=== PATIENT | male | born 1955 | race Caucasian/White ===

== ENCOUNTER 2017-01-05 23:59 | Inpatient (IN) | payer MEDICARE ==
--- NOTE | ~2017-01-05 | OP ---
Record Of [address] [place]. [address] NAME: KHUSHBOO SCHULTZ : 53 STATUS : ADM IN PAT#: [id number] AGE: 61 ADM/REG DATE : 01/05/17 MR#: [id number] REPORT SERV DATE: 01/10/17 DICTATED BY: ROBERT BRAR DATE: 01/10/17 REPORT STATUS : Draft TRANSCRIBED BY: MODL DATE: 01/10/17 DATE OF PROCEDURE: 01/10/2017 CATALYTIC CONVERTER OPERATOR HELPER: Donald Vicente. ANESTHESIOLOGIST: Ray Carter M.D. PREOPERATIVE DIAGNOSES: 1. Non-ST elevation myocardial infarction. 2. Three-vessel coronary artery disease. 3. Peripheral vascular disease. 4. Prior stroke. 5. Hyperlipidemia. 6. Hypertension. 7. Shortness of breath. POSTOPERATIVE DIAGNOSES: 1. Non-ST elevation myocardial infarction. 2. Three-vessel coronary artery disease. 3. Peripheral vascular disease. 4. Prior stroke. 5. Hyperlipidemia. 6. Hypertension. 7. Shortness of breath. OPERATION/PROCEDURE PERFORMED: 1. Median sternotomy. 2. Extracorporeal circulation. 3. Urgent coronary artery bypass grafting x2, reverse greater saphenous vein graft to left anterior descending artery, reverse greater saphenous vein graft to obtuse marginal #1. 4. Transesophageal echo. 5. Endoscopic vein harvest, right leg. COMPLICATIONS: None. TUBES: A 24-Russian Silviano to left pleural space. A 32-Russian straight mediastinal chest tube. Atrial and ventricular pacing wires were placed. POSTOPERATIVE CONDITION: Stable to CVICU. The patient was weaned from cardiopulmonary bypass on 2.5 mcg per kg per minute of dobutamine. Total cross-clamp 39 minutes. Total pump time 54 minutes. Transesophageal echo revealed an EF of approximately 40% to 45% with trace MR, trace AI, no . Postprocedure, there was preserved ejection fraction post revascularization. ANATOMIC FINDINGS: The distal OM system was submillimeter, was deemed too small to bypass. The patient's PDA and PLB which could be seen from collaterals on the cath were Record Of [address] [place]. [address] NAME: KHUSHBOO SCHULTZ : 53 STATUS : ADM IN PAT#: [id number] AGE: 61 ADM/REG DATE : 01/05/17 MR#: [id number] REPORT SERV DATE: 01/10/17 DICTATED BY: ROBERT BRAR DATE: 01/10/17 REPORT STATUS : Draft TRANSCRIBED BY: BELEN DATE: 01/10/17 submillimeter, were felt to be too small to bypass. The vein was 5 to 6 mm and excellent in quality. They were excellent targets. The details of the left internal mammary artery, left internal mammary artery was not usable. It was taken down with no issues. After heparinization, it was clipped and divided. The clip on the vessel was removed and the flow was checked. There was a very poor flow to really no flow after removing the clip. A #2 Marybeth was threaded up the vessel and was used to dilate the vessel. After removing the Marybeth, there was atherosclerotic plaque and material that came out. There was better flow from the artery, but I did not feel that this was an appropriate artery to be used, so the RAY was transected high in the chest and vein was used instead. INDICATIONS FOR PROCEDURE: Mr. Schultz is a 61-year-old gentleman with severe peripheral vascular disease. He was admitted to an outside hospital with shortness of breath and elevated troponin. He was found to have an NSTEMI. He was ultimately transferred for cardiac catheterization. Cardiac catheterization revealed severe three-vessel coronary artery disease and the patient was referred for CABG. Risks, benefits, and alternatives were discussed. The STS morbidity mortality scores were discussed and STS of 1.4 and morbidity mortality of 15% were discussed. The risks were discussed including but not limited to, bleeding, infection, stroke, , heart attack, kidney failure, lung failure, arrhythmias. All questions were answered. The patient was brought to the operating room after suitable period for his washout from Plavix. DESCRIPTION OF PROCEDURE: The patient was brought to the operating room and placed supine on the operating room table. After satisfactory induction of general endotracheal anesthesia, he was prepped and draped in the usual sterile fashion. Working simultaneously, an endoscopic vein harvest was performed from the right leg while median sternotomy was performed. Skin and subcutaneous tissues were divided. Clavipectoral fascia was divided. The sternum was divided in the midline. Sternal retractor was placed. Thymic tissue was divided in the midline. Pericardium was opened in the midline along the diaphragmatic surface. The Rultract retractor was then placed after removing the sternal retractor. The internal mammary artery was taken down as a pedicle from its takeoff under the subclavian vein to the bifurcation of the diaphragm. It was infiltrated with papaverine. Systemic heparinization was achieved. After three minutes, the pedicle was clipped and divided at the bifurcation of the diaphragm. Hemostasis was obtained along the chest wall. A 24- Russian Silviano was placed in the left chest and exteriorized. The Rultract retractor was removed and the pedicle graft was inspected. The clip was removed and there was little-to- no flow in the vessel. A #2 Marybeth was placed and was passed easily in a retrograde fashion. However, upon inflating the Marybeth and pulling it through the vessel, atherosclerotic debris was removed. It was felt that the internal mammary artery was not usable. It was ligated and transected high in the chest and passed off the field. The sternal retractor was placed. The pericardial wall was created. Ascending aortic cannulation was achieved at the base of the innominate artery through dual pursestrings with a soft flow cannula. Antegrade root vent cardioplegia tack was placed and a dual stage venous cannulation was placed through pursestring in the right atrial appendage. The conduit was brought up and prepared for bypass. Cardiopulmonary bypass was initiated after documentation of an adequate ACT. The targets were then inspected. The targets were as described in the findings. The cross-clamp was brought up, heart was arrested with cold antegrade cardioplegia with cold antegrade cardioplegia being given every 15 to 20 minutes Record Of Operation [address] [address] NAME: KHUSHBOO SCHULTZ : 53 STATUS : ADM IN PAT#: [id number] AGE: 61 ADM/REG DATE : 01/05/17 MR#: [id number] REPORT SERV DATE: 01/10/17 DICTATED BY: ROBERT BRAR DATE: 01/10/17 REPORT STATUS : Draft TRANSCRIBED BY: MODL DATE: 01/10/17 throughout the remainder of the cross clamp. The vein was reversed, spatulated, and after completion of the initial aliquot of cardioplegia, the two distal anastomoses were performed. The heart was positioned. The obtuse marginal #1 was opened along its anterior surface. A running continuous anastomosis was performed between this and the reverse greater saphenous vein using 8-0 Surgipro. This was checked for hemostasis and felt to be hemostatic. The heart was filled. The vein was cut to length and spatulated. Attention was then turned to the left anterior descending artery, it was opened along its anterior surface. The vein was spatulated and a running continuous anastomosis was performed. The attention was then turned to the ascending aorta. The ascending aorta was cleared off its adventitia. Two proximal aortotomies performed with 11 blade and enlarged with a 5.2 mm punch. The veins were anastomosed using 6-0 Prolene. Vein markers were placed. The veins were de-aired. Cross-clamp was removed. Pacing wires were placed. The patient returned to normal sinus rhythm after one cardioversion at 10 joules. The patient was ultimately able to be weaned from cardiopulmonary bypass without incident. Protamine was administered. The patient was decannulated. All cannulation sites were oversewn with 4-0 Prolene. Hemostasis was obtained. A 32-Russian chest tube was placed beneath the sternum. The pericardium was loosely reapproximated over the ascending aorta and the right ventricle. The sternum was then reapproximated using stainless steel sternal wires, some of these were double wires. Clavipectoral fascia was reapproximated using running #1 StrataFix. The subcutaneous tissues were closed using running #1 StrataFix and the skin using 2-0 Quill. Dry sterile dressings were placed. The patient was transferred to CVICU in critical, stable condition. [facility]/MODL Robert Brar MD / [id number] CC: Robert Brar MD
--- NOTE | ~2017-01-05 | DS ---
Discharge Summary [address] [place]. [address] NAME: KHUSHBOO CLEARY : 53 STATUS : ADM IN PAT#: [id number] AGE: 61 ADM/REG DATE : 01/05/17 MR#: [id number] REPORT SERV DATE: 01/20/17 DICTATED BY: ROMINA HARMON DATE: 01/20/17 REPORT STATUS : Draft TRANSCRIBED BY: MODL DATE: 01/20/17 ADMISSION DATE: 01/05/2017 DISCHARGE DATE: Total days of hospitalization from 01/05/2017 to 01/20/2017. For the details of hospitalization before 01/18/2017, refer to history of present illness dictated by Dr. Eber Zimmer on 01/06/2017, and also please refer to interim discharge summary dictated by nurse practitioner, Reji Chavez working with Dr. Saleh on 01/17/2017. I personally started to see this patient on 01/18/2017, for the week that I saw the patient, the patient was improving and was doing well, and he reached a point when he go to rehabilitation in the [facility]. DISCHARGE DIAGNOSIS: 1. Coronary artery disease, status post coronary artery bypass grafting per cardiothoracic surgeon, Dr. Welsh. 2. Status post non ST elevation myocardial infarction. 3. Atrial fibrillation with rapid ventricular response, currently in normal sinus rhythm. 4. Diabetes mellitus type 2, controlled. 5. Mild leukocytosis without any evidence of infection. Postsurgical leukocytosis which looks stable. 6. Severe peripheral vascular disease on the left lower extremity, needs to follow up with Dr. Reji Bradley as an outpatient per Dr. Bradley's recommendations. 7. Acute kidney injury present in the beginning of admission, resolved this week. Creatinine was normal. 8. Anemia of chronic disease, stable hemoglobin and hematocrit. 9. Moderate pericardial effusion without tamponade. Cardiothoracic surgery with mission manager, recommended to discontinue Coumadin because of the risk of increasing of the pericardial effusion and risk of tamponade if Coumadin will be continued. CONSULTANTS ON THE CASE: Waistband Setter Lockstitch, Dr. Milligan and mission manager, Dr. Bradley this week, as well as Cardiothoracic Dr. Welsh' nurse practitioner Ray Griffiths. The patient was seen also by Dr. Bradley in the beginning of hospitalization from Vascular Surgery. DIAGNOSTIC STUDIES: Chest x-ray done on 01/18/2017, showed severely enlarged cardiac silhouette, pericardial effusion not excluded. Echocardiogram which was done on 01/18/2017, showed moderate-sized pericardial effusion with respiratory variation of mitral and tricuspid valve, with no evidence of chamber collapse. Repeated echocardiogram which was done on 01/20/2017, per recommendation of mission manager Dr. Milligan, showed low normal left ventricular systolic function of 50%. Normal right ventricular chamber size and function. Moderate size pericardial effusion. When directly visually compared to the previous echocardiogram done on 01/18/2017, the pericardial effusion appears mildly increased. HOSPITAL COURSE: As I dictated for hospital course before 01/18/2017, please refer to interim discharge summary dictated by nurse practitioner Reji hCavez. For the Discharge Summary [address] [address] NAME: KHUSHBOO CLEARY : 53 STATUS : ADM IN [facility]#: [id number] AGE: 61 ADM/REG DATE : 01/05/17 MR#: [id number] REPORT SERV DATE: 01/20/17 DICTATED BY: ROMINA HARMON DATE: 01/20/17 REPORT STATUS : Draft TRANSCRIBED BY: BELEN DATE: 01/20/17 hospital course starting 01/18/2017, the patient was recovering after surgery. He was doing well. Because of the chest x-ray it showed enlarged cardiac silhouette and possible pericardial effusion. Echocardiogram was done, which revealed moderate size pericardial effusion. Dr. Milligan mission manager recommended to repeat echocardiogram in two days because of the concern of increasing pericardial effusion. Specifically, when patient was on Plavix and Coumadin. There was a concern that it can cause a large diffusion with potential tamponade. So, repeated echocardiogram showed increased pericardial effusion and Ray Griffiths nurse practitioner of Dr. Welsh discussed with Dr. Wagner mission manager and they both recommended to discontinue Plavix and Coumadin and Ray spoke with the family, also they explained to them that although the patient has elevated NIKI score, he has atrial fibrillation, but he needs to hold the aspirin and Plavix to be sure it will not cause increased pericardial effusion. As well as he recommended the patient to follow up with his mission manager Dr. Lora in two weeks to repeat echocardiogram and to see if pericardial effusion is staying stable or decreased in size. Then he probably he will be able to restart his Coumadin and Plavix, the decision should be made by Dr. Lora. Also, he had atrial fibrillation and the patient was on amiodarone. So, Dr. Milligan recommended the patient to be on amiodarone 200 mg twice a day and Ray Griffiths gave prescription for amiodarone 200 mg twice a day for three weeks. After three weeks the patient needs to follow up with Dr. Lora to decide if amiodarone dose should be continued at the same dose and frequency, or it should be decreased to once a day. This was discussed with the patient's , and with the patient, as well as with the patient's sister, they were explained that it is a really necessity to follow up with Dr. Lora in two weeks to make this decision. Also, they need to follow up with the primary care physician, Dr. Coy. The patient is doing well. He is participating with physical therapy. Regarding patient's peripheral vascular disease. He has significant peripheral vascular disease on the left leg. The patient was seen by Dr. Reji Bradley, vascular surgeon, while patient was hospitalized here in the hospital and he recommended the patient to have outpatient followup with him. So, I discussed this with the patient's family and recommended to make a followup appointment with Dr. Bradley in three to four weeks. DISCHARGE MEDICATIONS: Baby aspirin 80 mg a day, Lipitor at 80 mg a day. The patient was recommended to discontinue Plavix. Amiodarone 200 mg p.o. every 12 hours, prescription was given for Ray Griffiths for three weeks and then he needs to follow up with Dr. Lora for further adjustment of patient's amiodarone dose and frequency. Arminto-3 fatty acids 1000 mg a day, NovoLog level 3 sliding scale before meals, Florastor one capsule p.o. b.i.d., Spiriva one capsule by inhalation to 24 hours, Levemir 22 units at bedtime, Tylenol 650 p.o. q.6 hours p.r.n., Dulcolax 10 mg as needed for constipation, Zofran as needed for nausea. The patient's home Imdur was discontinued by Ray Griffiths because blood pressure was borderline, as well as lisinopril and Norvasc were discontinued, as well as metoprolol because blood pressure was borderline on amiodarone. Nitroglycerin 0.4 mg sublingually p.r.n. for chest pain. Discharge Summary [address]. [address] NAME: KHUSHBOO CLEARY : 53 STATUS : ADM IN PAT#: [id number] AGE: 61 ADM/REG DATE : 01/05/17 MR#: [id number] REPORT SERV DATE: 01/20/17 DICTATED BY: ROMINA HARMON DATE: 01/20/17 REPORT STATUS : Draft TRANSCRIBED BY: BELEN DATE: 01/20/17 FOLLOWUP: He needs to follow up with Dr. Welsh in three to four weeks. Followup with Dr. Bradley in two to three weeks. Follow up with mission manager, Dr. Lora in two weeks. Follow up with Dr. Coy after discharge from rehab. I spent 45 minutes on discharge. The patient was discharged in a stable condition. I discussed everything with the patient, his sister, and his . MG/MODPaty Romina Harmon M.D. / [id number] CC: Andrea Finney MD Ondrej J Lisy, M.D. Christopher Lesar, M.D.
--- NOTE | ~2017-01-05 | CN ---
Consultation Report [address] [place]. [address] NAME: KHUSHBOO SCHULTZ : 53 STATUS : ADM IN PAT#: [id number] AGE: 61 ADM/REG DATE : 01/05/17 MR#: [id number] REPORT SERV DATE: 01/06/17 DICTATED BY: PONCE MILLIGAN DATE: 01/06/17 REPORT STATUS : Draft TRANSCRIBED BY: MODL DATE: 01/06/17 DATE OF CONSULTATION: HISTORY OF PRESENT ILLNESS: Khushboo Schultz is a 61-year-old male, who is referred for jit-IW-[id number] elevation AR. DICTATION ENDS HERE VICKIE/BELEN Ponce Milligan M.D. / [id number] CC: Paolo Rutledge M.D.
--- NOTE | ~2017-01-05 | IDS ---
Interim Discharge Summary [facility] [address] [place]. [address] NAME: KHUSHBOO CLEARY : 53 STATUS : ADM IN [facility]#: [id number] AGE: 61 ADM/REG DATE : 01/05/17 MR#: [id number] REPORT SERV DATE: 01/17/17 DICTATED BY: REJI LIPSCOMB DATE: 01/17/17 REPORT STATUS : Draft TRANSCRIBED BY: MODL DATE: 01/17/17 ADMISSION DATE: 01/05/2017 DISCHARGE DATE: CURRENT INTERIM DIAGNOSES: List includes: 1. Coronary artery disease, status post coronary artery bypass grafting x2, postop day seven. 2. Gbb-AH-syqblklzh myocardial infarction. 3. Atrial fibrillation with rapid ventricular response, but now converted to sinus rhythm. 4. Diabetes type 2, hemoglobin A1c of 7.5. 5. Leukocytosis and atelectasis. 6. Severe peripheral vascular disease. 7. Acute kidney injury, resolved. 8. Anemia of acute blood loss, stable. 9. History of cerebrovascular accident with right weakness from 1980. 10.Lower extremity edema, right greater than left, chronic. 11.Chronic diastolic dysfunction. HISTORY OF PRESENT ILLNESS: This is a pleasant 61-year-old white male, who was originally transferred from [facility] after experiencing chest pain. Please see the initial H and P of Dr. Eber Zimmer. This patient was admitted to the Hospitalist Service for further evaluation and treatment. CONSULTANTS DURING THIS ADMISSION: Include Cardiology, Dr. Ponce Milligan. Cardiothoracic surgeon, Dr. Welsh. Nurse practitioner, Ray Griffiths. Vascular Surgery, Dr. Bradley. SURGERIES AND PROCEDURES DURING THIS ADMISSION: Include a coronary artery bypass grafting that was performed on 01/10/[address] Welsh. A cardioversion for unstable atrial fibrillation was performed on 01/13/2017 with return to normal sinus rhythm afterwards. An echocardiogram on 01/07/2017 showing ejection fraction of 50% to 55%, mild LVH, no significant valvular regurg or stenosis. A venous Doppler ultrasound of lower extremities showing no evidence of DVT. A lower extremity arterial Doppler ultrasound showing an occlusion of the right common femoral artery and proximal FSA with collateral flow, opacifying the mid right SFA; biphasic flow in the left common femoral and monophasic flow throughout the remainder of the left lower extremity arterial system. A CT of the chest on 01/07/2017 showing no infiltrate, no lung mass, no effusions. The heart catheterization performed on 01/06/2017 showing severe multivessel coronary disease. HOSPITAL COURSE: As stated, the patient was transferred from [facility] and underwent the above-described heart catheterization and was found to have severe multivessel coronary disease. Cardiothoracic Surgery and Vascular Surgery were consulted for further workup and management. He did improve, and his chest pain resolved. He was afebrile. Lab work and blood pressures were stable. He underwent the workup for coronary artery bypass grafting including vein mapping, echocardiogram and subsequently underwent the coronary artery bypass grafting as stated on 01/10/2017. Postoperatively, he did have some hypoxic respiratory failure and some shock, requiring vasoactive drips and aggressive nebulizers and Interim Discharge Summary [address] [address] NAME: KHUSHBOO CLEARY : 53 STATUS : ADM IN [facility]#: [id number] AGE: 61 ADM/REG DATE : 01/05/17 MR#: [id number] REPORT SERV DATE: 01/17/17 DICTATED BY: REJI LIPSCOMB DATE: 01/17/17 REPORT STATUS : Draft TRANSCRIBED BY: BELEN DATE: 01/17/17 initial antibiotic treatment as well, but this postoperative respiratory failure resolved quite rapidly and he was able to be slowly weaned off his O2, and aggressive pulmonary toilet was maintained. He was followed closely in the CVICU postoperatively and did have some slight abdominal distention, which with the use of Dulcolax suppositories produced a bowel movement. His insulin was adjusted for control of his blood sugars. However, on the date of 01/13/2017, the patient went into a very rapid atrial fibrillation with RVR and was so followed by Cardiology, who started amiodarone, heparin, Lopressor and he underwent the cardioversion on 01/13 with return to normal sinus rhythm. He continued to do well and was felt safe for transfer out of the CVICU to [address] [place] [address], but that evening, went back into a rapid atrial fibrillation with RVR and with some mild hypotension and was transferred urgently back to the CVICU for further management. He was continued on amiodarone, heparin and also some esmolol, and his heart rate was somewhat difficult to rate control even with this aggressive management and he was slated for a repeat cardioversion to be performed on 01/17/2017, but he did spontaneously convert back to sinus rhythm on 01/16/2017 and has since been stable with a heart rate of approximately 70 to 80, so as of now, the cardioversion has been placed on hold. Overall, the patient is feeling better with no new complaints. His lab work is stable. He has been afebrile. He is normotensive and hopefully can be moved out of the CVICU soon to continue his improvement and hopeful discharge from the hospital soon. Physical Therapy and Occupational Therapy will evaluate and treat the patient for possibility of rehab at discharge, and he will bridge heparin and Coumadin at this time under the watchful eye of Cardiology. I have updated the patient at bedside, questions were answered extensively, and he will also according to Dr. Bradley follow up outpatient with regard to his peripheral vascular disease. Appreciate the Cardiology, Cardiothoracic Surgery, and Vascular Surgery's help on this patient. ALAN/MODL Reji Lipscomb NP / [id number] CC: Jovanna Saleh M.D.
--- NOTE | ~2017-01-05 | CN ---
Consultation Report [facility] [address] [place]. [address] NAME: KHUSHBOO SCHULTZ : 53 STATUS : ADM IN PAT#: [id number] AGE: 61 ADM/REG DATE : 01/05/17 MR#: [id number] REPORT SERV DATE: 01/06/17 DICTATED BY: PONCE MILLIGAN DATE: 01/06/17 REPORT STATUS : Draft TRANSCRIBED BY: MODPaty DATE: 01/06/17 CONSULTATION DATE OF CONSULTATION: Khushboo Schultz is a 61-year-old male, who was transferred from [facility] with non-ST- segment elevation CA. CVD PHYSICIAN: Owen Lora M.D. HISTORY OF PRESENT ILLNESS: Mr. Schultz was driving and stopped to use the bathroom on Tuesday. When he got out of his car and started to walk inside, he began extremely short of breath with left-sided sharp chest pain. He says he barely went back to his car and took his nitroglycerin. This resolved the discomfort. He then came to the emergency room in [facility] where apparently he was found to be in some heart failure with positive cardiac enzymes. He is now stable, pain free. REVIEW OF SYSTEMS: Occasional shortness of breath and chest pain in the past. This was more prolonged than usual. No palpitations, syncope, or presyncope. No fever or chills. No bleeding. Rest is negative. PAST MEDICAL HISTORY: 1. Peripheral vascular disease with known right femoral artery occlusion and left carotid endarterectomy. Followed by Dr. Bradley. 2. Paroxysmal atrial fibrillation, now in sinus rhythm. 3. Known coronary artery disease with cardiac catheterization in 2010 showing occluded circ and RCA with a 40% left main. 4. Hyperlipidemia. Currently on atorvastatin 80 mg. 5. Hypertension, longstanding. Adequate control at this time. SOCIAL HISTORY: He is and has two kids. He has a previous history of cigarette smoking 35 years ago. He does not drink. FAMILY HISTORY: Significant for father with a myocardial infarction in his 40s. PHYSICAL EXAMINATION: VITAL SIGNS: Blood pressure is 112/60, pulse is 57. GENERAL: He is afebrile, resting comfortably. LUNGS: Clear with symmetric expansion of chest. HEART: Precordium is quiet. S1, S2 are normal. ABDOMEN: Soft. EXTREMITIES: Demonstrate no edema. No pulses are noted in either lower extremity. They are warm. SKIN: No petechiae are noted. Consultation Report [address] [place]. [address] NAME: KHUSHBOO SCHULTZ : 53 STATUS : ADM IN PAT#: [id number] AGE: 61 ADM/REG DATE : 01/05/17 MR#: [id number] REPORT SERV DATE: 01/06/17 DICTATED BY: PONCE MILLIGAN DATE: 01/06/17 REPORT STATUS : Draft TRANSCRIBED BY: BELEN DATE: 01/06/17 LABORATORY EVALUATION: Renal function is normal with creatinine 1. Troponin is elevated at 0.12, 0.11, and 0.17. BNP is normal. Chest x-ray shows cardiomegaly without pulmonary edema. EKG shows no acute changes. ASSESSMENT: At this time, we will consider cardiac catheterization with history of known coronary artery disease, yve-OV-xjrcljt elevation myocardial infarction. We will need to use radial approach due to his peripheral vascular disease. I have discussed the risks and benefits of this treatment and he agrees to proceed. VICKIE/BELEN Ponce Milligan M.D. / [id number] CC: Andrea Meza MD
--- NOTE | ~2017-01-05 | CN ---
Consultation Report [facility] [address] [place]. [address] NAME: KHUSHBOO SCHULTZ : 53 STATUS : ADM IN PAT#: [id number] AGE: 61 ADM/REG DATE : 01/05/17 MR#: [id number] REPORT SERV DATE: 01/06/17 DICTATED BY: LIS BROUSSARD DATE: 01/06/17 REPORT STATUS : Draft TRANSCRIBED BY: MODL DATE: 01/06/17 CONSULTATION REPORT DATE OF CONSULTATION: 01/06/2017 REASON FOR CONSULTATION: Multivessel coronary artery disease. HISTORY OF PRESENT ILLNESS: This is a pleasant 61-year-old male with a history of known coronary artery disease with chronic total occlusion of his RCA disease to his left circumflex and 40% left main coronary artery disease per cardiac catheterization in 2010, but per the patient, he says that he was not a good candidate for stenting at that time, so was managed medically. 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 He presented to [facility] on 01/01/2017 with complaints of chest pain. Troponin was maxed at 5.4, that was concern over access issues to performing an arteriogram, so the patient was sent here to be evaluated by Dr. Bradley. Upon arrival, the patient was taken to cardiac catheterization by Dr. Allison and found to have severe multivessel coronary artery disease including a 60% distal left main coronary artery, 70% proximal LAD, 70% proximal left circ, and 100% total chronic occlusion of his RCA. His echo at [facility] apparently showed normal ejection fraction with no valvular abnormality. Cardiothoracic Surgery was consulted for evaluation of CAB versus medical management in a very complicated patient from a medical and vascular standpoint. The patient has been on Plavix chronically with his last dose yesterday. Currently, the patient is recovering after cardiac catheterization with no complaints of chest pain or shortness of breath. His partner is with him at the bedside. PAST MEDICAL HISTORY: Coronary artery disease, CVA, peripheral vascular disease, hyperlipidemia, hypertension, history of atrial fibrillation, morbid obesity, right-sided hemiparesis. PAST SURGICAL HISTORY: Prior PCI in 2010 as above, cerebral aneurysm repair, and left carotid endarterectomy. SOCIAL HISTORY: He is on disability since his stroke. He is not but has lived with the same woman for the last 25 years. He has two grown sons. He smoked previously but quit several years ago. He denies any history of alcohol abuse or use of illicit drugs. ALLERGIES: NO KNOWN DRUG ALLERGIES. HOME MEDICATIONS: Norvasc 2.5 mg p.o. at bedtime, Plavix 75 mg daily, aspirin 81 mg at bedtime, atorvastatin 80 mg at bedtime, Imdur 60 mg p.o. daily, lisinopril 10 mg p.o. daily, metoprolol 25 mg p.o. b.i.d., nitroglycerin tabs 0.4 mg sublingually as needed, fish oil 1000 mg p.o. at bedtime. Consultation Report [id number] [facility] [place]. [address] NAME: KHUSHBOO SCHULTZ : 53 STATUS : ADM IN [facility]#: [id number] AGE: 61 ADM/REG DATE : 01/05/17 MR#: [id number] REPORT SERV DATE: 01/06/17 DICTATED BY: LIS BROUSSARD DATE: 01/06/17 REPORT STATUS : Draft TRANSCRIBED BY: BELEN DATE: 01/06/17 FAMILY HISTORY: Mother with a history of colon cancer, father with coronary artery disease as well as siblings with coronary artery disease. REVIEW OF SYSTEMS: A 10-point review of systems was obtained and is negative other than HPI. PHYSICAL EXAMINATION: VITAL SIGNS: Today, temperature 96.9, heart rate 61, blood pressure 96/54, respiratory rate 18, and O2 saturation 97%. GENERAL: Pleasant, obese, male, in no acute distress. PSYCH: Flat affect, talkative, pleasant. NEURO: Alert and oriented x3. Pupils are equal, round, and reactive to light and accommodation. He has no movement of his right upper extremity and minimal movement of his right lower extremity. He moves his left upper extremity and left lower extremity well to commands. HEENT: Head is normocephalic and atraumatic. Sclerae clear. Nose midline with no abnormalities. Ears with no abnormalities. Dentition, overall good dentition. NECK: Supple with no obvious thyromegaly or lymphadenopathy. LUNGS: Clear to auscultation bilaterally with normal effort. CARDIAC: S1, S2 with no murmurs, rubs, or gallops. Sinus bradycardia. ABDOMEN: Soft, obese, and nontender with active bowel sounds. EXTREMITIES: Generalized 1+ edema bilaterally. His edema is a little bit worse on the right lower extremity. Pedal pulses are difficult to palpate. There is no cyanosis or clubbing noted. White blood cell count 6.0, hemoglobin 13.6, hematocrit 41, platelets 163. Sodium 142, potassium 4.0, chloride 105, bicarbonate 27, BUN 19, creatinine 0.9, glucose 144. ASSESSMENT AND PLAN: This is a pleasant but very unfortunate 61-year-old male with a history of coronary artery disease, prior cerebrovascular accident and severe peripheral vascular disease, who was admitted to [facility] five days ago with an NSTEMI taking for cardiac catheterization today and found to have severe three-vessel coronary artery disease, likely needs three-vessel CABG but during this may be difficult considering his anatomy and severity of his peripheral vascular disease. I have discussed the risk and benefits of surgery as well as his STS risk score, his STS risk stratification for him, and this particular surgery including overall mortality of 1.4% and morbidity mortality of 15%. I discussed these findings in regard to expectations for surgery and recovery. The patient is willing to proceed with surgery, but we will need to get further information before planning this. I would like to go ahead and get a venous ultrasound of his lower extremities to evaluate for conduit. We will also discuss surgical plans with Dr. Bradley to help determine whether or not the patient is a candidate. We will review images with Dr. Welsh tomorrow. We will continue to hold Plavix for now. We would like to thank you for the consultation and look forward helping you take care of Mr. Khushboo Schultz. Consultation Report [address] [place]. [address] NAME: KHUSHBOO SCHULTZ : 53 STATUS : ADM IN PAT#: [id number] AGE: 61 ADM/REG DATE : 01/05/17 MR#: [id number] REPORT SERV DATE: 01/06/17 DICTATED BY: LIS BROUSSARD DATE: 01/06/17 REPORT STATUS : Draft TRANSCRIBED BY: MODPaty DATE: 01/06/17 ISMAEL/BELEN Lis Broussard NP / [id number] CC: Andrea Meza MD
--- NOTE | ~2017-01-05 | OP ---
Record Of Operation [facility] [address] [place]. [address] NAME: KHUSHBOO CLEARY : 53 STATUS : ADM IN [facility]#: [id number] AGE: 61 ADM/REG DATE : 01/05/17 MR#: [id number] REPORT SERV DATE: 01/13/17 DICTATED BY: ONIEL HUTTON DATE: 01/13/17 REPORT STATUS : Draft TRANSCRIBED BY: MODL DATE: 01/13/17 DATE OF PROCEDURE: 01/13/2017 PROCEDURE INDICATION: Atrial fibrillation with RVR. PROCEDURE TYPE: Urgent elective cardioversion only for unstable atrial fibrillation with RVR. PROCEDURE DESCRIPTION: Informed consent was obtained, and questions were answered. Anesthesia administered sedation. Upon successful sedation, the patient was shocked with 200 joules, synchronized x2 with successful conversion to sinus rhythm at 70 beats per minute. There were no complications from the procedure. The patient had been given a heparin bolus and started on the heparin drip prior to initiation of the procedure. BLANCHE/BELEN Oniel Hutton MD / [id number] CC: Jovanna Saleh M.D.
--- NOTE | ~2017-01-05 | HP ---
History And Physical [id number] [place]. [address] NAME: KHUSHBOO SCHULTZ : 53 STATUS : ADM IN [facility]#: [id number] AGE: 61 ADM/REG DATE : 01/05/17 MR#: [id number] REPORT SERV DATE: 01/06/17 DICTATED BY: CHI CONTRERAS DATE: 01/06/17 REPORT STATUS : Draft TRANSCRIBED BY: MODL DATE: 01/06/17 DATE OF ADMISSION: 01/05/2017 POINT OF ENTRY: Transfer from [facility]. CHIEF COMPLAINT: Ueq-IQ-enmuisuqd myocardial infarction. PRIMARY CARE PHYSICIAN: Rubens Coy MD PRIMARY RESIDENT MEDICAL OFFICER: Dr. Lora. PRIMARY VASCULAR SURGEON: Dr. Bradley. HISTORY OF PRESENT ILLNESS: Mr. Schultz is a 61-year-old gentleman with a history of coronary artery disease with known chronic total occlusion of the RCA with extensive left-to right collaterals, currently being medically managed, as well as known history of severe peripheral vascular disease involving the bilateral iliofemoral systems, the carotid arterial system, as well as suspected bilateral subclavian systems, who is being transferred from [facility] for kea-BX-fvroutxmi myocardial infarction and for evaluation by Vascular Surgery for possible repeat cardiac catheterization. 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 Initially at [facility], his troponin peaked at 5.37, the CK-MB of 29.7. There was some concern for volume overload and acute CHF as his BNP was mildly elevated. However, echocardiogram there revealed normal ejection fraction with some mild LVH as well as stage I diastolic dysfunction. The patient was also noted to have severe hyperglycemia with initial blood sugars in the low 300s. Hemoglobin A1c ultimately ended up being 7.2. He was placed on a heparin drip and continued on aspirin and Plavix and Cardiology was consulted. Ultimately, it was Dr. Segal of Cardiology that recommended transfer to [facility] so that the patient could be seen by Dr. Bradley as the patient and family are wishing for an aggressive approach. It was Dr. Segal's thinking that if Dr. Bradley could identify an area of arterial access for possible repeat coronary catheterization that would be the plan forward. Upon transfer to [facility], the patient currently denies any chest pain or shortness of breath. States the last time he had chest pain was 01/01/2017. He denies any other pain or complaints at this time. COMPREHENSIVE REVIEW OF SYSTEMS: Otherwise negative unless listed in history of present illness. PREVIOUS MEDICAL HISTORY: 1. Coronary disease with known chronic occlusion of the RCA with xiiu-ae-klhai collaterals. 2. Severe peripheral vascular disease involving the bilateral iliofemoral systems, carotid arterial system, as well as suspected bilateral subclavian systems. History And Physical [address] [address] NAME: KHUSHBOO SCHULTZ : 53 STATUS : ADM IN [facility]#: [id number] AGE: 61 ADM/REG DATE : 01/05/17 MR#: [id number] REPORT SERV DATE: 01/06/17 DICTATED BY: CHI CONTRERAS DATE: 01/06/17 REPORT STATUS : Draft TRANSCRIBED BY: BELEN DATE: 01/06/17 3. Hypertension. 4. Hyperlipidemia. 5. History of atrial fibrillation. 6. History of cerebrovascular accident with resulting right-sided hemiparesis. SURGICAL HISTORY: 1. Left carotid endarterectomy. 2. Cerebral aneurysm repair. ALLERGIES: CODEINE. HOME MEDICATIONS: 1. Norvasc 2.5 mg at bedtime. 2. Aspirin 81 mg at bedtime. 3. Atorvastatin 80 mg at bedtime. 4. Plavix 75 mg daily. 5. Imdur 60 mg daily. 6. Lisinopril 10 mg daily. 7. Metoprolol 25 mg b.i.d. 8. Nitroglycerin 0.4 mg sublingual p.r.n. 9. Fish oil 1000 mg at bedtime. SOCIAL HISTORY: Denies any tobacco, alcohol, or illicits. He is a former smoker, but quit many years ago. FAMILY MEDICAL HISTORY: Mother with colon cancer. Father with coronary artery disease. Siblings also with coronary artery disease. LABS AND IMAGING: All obtained from transfer records from [facility]: 1. White count 6.0, hemoglobin 12.8, hematocrit 37.7, and platelet count is 155. 2. Sodium is 140, potassium 3.9, chloride 105, carbon dioxide 28, BUN 17, creatinine 0.92, glucose is 168, and calcium 9.1. 3. Hemoglobin A1c 7.2. 4. Troponin peaked at 5.37 on 01/01/2017. CK-MB also peaked on 01/01/2017 at 29.7. 5. Echocardiogram performed at [facility] showed a normal ejection fraction as well as left ventricular size and function with mild LVH and stage I diastolic dysfunction. 6. Review of transfer records also reveals a stress test performed at [facility] in 10/2016 which showed ejection fraction of 51% with low risk stress test with no inducible ischemia but a small fixed inferolateral defect consistent with prior [place]. 7. Cardiac catheterization from 10/2010 shows severe bilateral peripheral vascular disease of the iliofemoral systems with total occlusion of the right common femoral artery. Also shows 100% occlusion of the RCA with extensive lejo-ni-chpcc collaterals. At that time, medical management was recommended. PHYSICAL EXAMINATION: VITAL SIGNS: Temperature is 97.4 degrees Fahrenheit, pulse is 64, respirations 16, saturating 92% on 3 L of nasal cannula, and blood pressure 125/69. History And Physical [address] [address] NAME: KHUSHBOO SCHULTZ : 53 STATUS : ADM IN [facility]#: [id number] AGE: 61 ADM/REG DATE : 01/05/17 MR#: [id number] REPORT SERV DATE: 01/06/17 DICTATED BY: CHI CONTRERAS DATE: 01/06/17 REPORT STATUS : Draft TRANSCRIBED BY: BELEN DATE: 01/06/17 GENERAL: The patient is awake, alert, in no acute distress. Resting comfortably in bed. He is an elderly male. Appears somewhat older than stated age. HEENT: Atraumatic and normocephalic. Moist mucous membranes. Pupils equal, round, reactive to light and accommodation. Extraocular eye movements are intact. No scleral icterus. NECK: No jugular venous distention. Does have some mild bilateral carotid bruits. CARDIAC: Regular rate and rhythm. No murmurs or gallops. Normal S1, S2. LUNGS: Clear to auscultation bilaterally. No wheezes, rhonchi, or crackles. ABDOMEN: Obese, soft, nontender, nondistended with good bowel sounds. No rebound, guarding, or rigidity. EXTREMITIES: Warm, well perfused. He has barely palpable DP/PT pulses bilaterally, although some evidence of chronic lower extremity arterial ischemia. SKIN: Warm and dry. PSYCH: Affect appropriate. NEURO: Alert and oriented x3. Cranial nerves 2 through 12 are grossly intact. Speech is somewhat dysarthric but reportedly chronic. The patient also has residual right-sided hemiparesis from prior cerebrovascular accident. His gait was not assessed. ASSESSMENT: Mr. Schultz is a 61-year-old gentleman, admitted to [facility] on 01/01/2017 with a non-ST elevation myocardial infarction, now transferred to [facility] for evaluation by Vascular Surgery, Dr. Bradley, to identify any potential area of arterial access for possible repeat cardiac catheterization. PROBLEM LIST: 1. Uol-FW-ijzhfmfwx myocardial infarction. 2. Severe peripheral vascular disease. 3. New diagnosis of diabetes. 4. Diastolic dysfunction. PLAN: 1. Xyv-KY-ktnsorwrd myocardial infarction. We will continue the patient's home aspirin, Plavix, statin, beta-ketan as well as long-acting nitrates, as well as his heparin infusion. We will consult [facility] here for assistance. 2. Severe peripheral vascular disease. We will consult Dr. Bradley per Dr. Segal's request to see if there is any identifiable arterial access for repeat coronary catheterization. 3. New onset diabetes. Hemoglobin A1c was 7.[address] [facility] Place on level 1 insulin sliding scale as well as calorie-restricted diet. 4. Diastolic dysfunction. The patient denies any shortness of breath; however, he is on 3 L of nasal cannula. We will attempt to wean as tolerated. Checking a chest x-ray as well as a BNP given reports of diastolic dysfunction. 5. DVT prophylaxis. Heparin infusion. CODE STATUS: The patient wished to be full code. JCB/MODL History And Physical [address] [address] NAME: KHUSHBOO SCHULTZ : 53 STATUS : ADM IN [facility]#: [id number] AGE: 61 ADM/REG DATE : 01/05/17 MR#: [id number] REPORT SERV DATE: 01/06/17 DICTATED BY: CHI CONTRERAS DATE: 01/06/17 REPORT STATUS : Draft TRANSCRIBED BY: MODL DATE: 01/06/17 Chi Contreras MD / [id number] CC: Andrea Meza MD Christopher Lesar, M.D.
[~2017-01-05 23:59] MED LIST: ASAB PO; LOP25 PO; PLAVIX PO; PRAVACHOL80 MG PO; SLEEPING PILL; ZESTRIL10 MG PO; ZETIA PO
[2017-01-06] MEDS ORDERED: NORV25 PO (00:13)
[2017-01-06] MEDS ORDERED: PLAVIX PO (00:13)
[2017-01-06] MEDS ORDERED: IMDUR60 PO (00:13)
[2017-01-06] MEDS ORDERED: LIPITOR80 MG PO (00:14)
[2017-01-06] MEDS ORDERED: PRIN10 PO (00:14)
[2017-01-06] MEDS ORDERED: NITROSTAT0.4 MG SL (00:15)
[2017-01-06] MEDS ORDERED: ASAB PO (00:15)
[2017-01-06] MEDS ORDERED: LOP25 PO (00:15)
[2017-01-06] MEDS ORDERED: FISH-EPA1000 MG PO (00:15)
[2017-01-06 06:06] LABS: INTERNATIONAL NORMAL RATI 1.1 UNITS (-); PROTIME (NOT ORD) 13.7 SEC (12.0-14.5)
[2017-01-06 06:07] LABS: PARTIAL THROMBO TIME 63.2 SEC (22.5-37.2)
[2017-01-06 06:20] LABS: BASOPHILS 0.5 %; BASOPHILS ABSOLUTE 0.03 10/3/uL (0.0-0.16); EOSINOPHILS 2.3 %; EOSINOPHILS ABSOLUTE 0.14 10/3/uL (0.0-0.53); IMMATURE GRANULOCYTES 0.2 %; IMMATURE GRANULOCYTES ABSOLUTE 0.01 10/3/uL (0.0-0.11); LYMPHOCYTES 21.8 %; LYMPHOCYTES ABSOLUTE 1.34 10/3/uL (0.67-4.30); MEAN CORPUSCULAR HEMOGLOB 31.3 pg (26.0-34.0); MEAN CORPUSCULAR VOLUME 94.9 fL (80-100); MEAN PLATELET VOLUME 11.1 fL (9.2-13.0); MONOCYTES 7.8 %; MONOCYTES ABSOLUTE 0.48 10/3/uL (0.21-1.20); NEUTROPHILS 67.4 %; NEUTROPHILS ABSOLUTE 4.16 10/3/uL (2.02-8.40); PLATELET COUNT 173 10/3/uL (150-400); RBC DISTRIBUTION WIDTH 13.9 % (12.0-16.0); RED CELL COUNT 4.15 10/6/uL (4.7-6.1); WHITE BLOOD CELLS 6.2 10/3/uL (4.5-10.5)
[2017-01-06 06:31] LABS: CALCIUM, SERUM 9.2 MG/DL (8.5-10.4); CHLORIDE, SERUM 105 MMOL/L (96-112); CO2 (CARBON DIOXIDE) 27 MMOL/L (24-34); GFR AFRICAN AMERICAN 93 ML/MIN (>=60); GFR NON AFRICAN AMERICAN 80 ML/MIN (>=60); POTASSIUM, SERUM 3.7 MMOL/L (3.5-5.3); SODIUM, SERUM 142 MMOL/L (135-148)
[2017-01-06 06:32] LABS: BUN (BLOOD UREA NITROGEN) 20 MG/DL (6-23); GLUCOSE, SERUM 183 MG/DL (60-99); TROPONIN I 0.17 NG/ML (<0.05)
[2017-01-06 06:39] LABS: HEMATOCRIT 39.4 % (40.0-51.0); MANUAL DIFF NO %
[2017-01-06 13:19] LABS: BASOPHILS 0.3 %; BASOPHILS ABSOLUTE 0.02 10/3/uL (0.0-0.16); EOSINOPHILS 2.5 %; EOSINOPHILS ABSOLUTE 0.15 10/3/uL (0.0-0.53); HEMOGLOBIN 13.6 g/dL (13.6-17.8); LYMPHOCYTES 25.5 %; LYMPHOCYTES ABSOLUTE 1.52 10/3/uL (0.67-4.30); MEAN CORPUS HGB CONC 33.2 g/dL (32.0-36.0); MEAN CORPUSCULAR HEMOGLOB 31.4 pg (26.0-34.0); MEAN CORPUSCULAR VOLUME 94.7 fL (80-100); MEAN PLATELET VOLUME 11.6 fL (9.2-13.0); MONOCYTES 5.7 %; MONOCYTES ABSOLUTE 0.34 10/3/uL (0.21-1.20); NEUTROPHILS ABSOLUTE 3.94 10/3/uL (2.02-8.40); PLATELET COUNT 163 10/3/uL (150-400); RED CELL COUNT 4.33 10/6/uL (4.7-6.1)
[2017-01-06 13:20] LABS: MANUAL DIFF NO %
[2017-01-06 13:25] LABS: PROTIME (NOT ORD) 13.5 SEC (12.0-14.5)
[2017-01-06 13:26] LABS: PARTIAL THROMBO TIME 55.2 SEC (22.5-37.2)
[2017-01-06 13:34] LABS: BUN (BLOOD UREA NITROGEN) 19 MG/DL (6-23); CHLORIDE, SERUM 105 MMOL/L (96-112); CHOL/HDL RATIO(NOT ORDER) 3.9 (0-5); CO2 (CARBON DIOXIDE) 27 MMOL/L (24-34); CREATININE 0.89 MG/DL (0.70-1.30); GFR AFRICAN AMERICAN 106 ML/MIN (>=60); GFR NON AFRICAN AMERICAN 92 ML/MIN (>=60); HDL CHOLESTEROL 35 MG/DL (> 39); LDL CHOLESTEROL 71 MG/DL (< 130); NON-HDL CHOLESTEROL 100 MG/DL (< 160); SODIUM, SERUM 142 MMOL/L (135-148); TRIGLYCERIDE 145 MG/DL (< 150)
[2017-01-06 13:35] LABS: CHOLESTEROL 135 MG/DL (< 200); GLUCOSE, SERUM 144 MG/DL (60-99)
[2017-01-07 06:08] LABS: BASOPHILS 0.5 %; BASOPHILS ABSOLUTE 0.03 10/3/uL (0.0-0.16); EOSINOPHILS 2.2 %; EOSINOPHILS ABSOLUTE 0.12 10/3/uL (0.0-0.53); HEMATOCRIT 41.1 % (40.0-51.0); IMMATURE GRANULOCYTES 0.2 %; IMMATURE GRANULOCYTES ABSOLUTE 0.01 10/3/uL (0.0-0.11); LYMPHOCYTES 21.6 %; LYMPHOCYTES ABSOLUTE 1.19 10/3/uL (0.67-4.30); MEAN CORPUS HGB CONC 31.6 g/dL (32.0-36.0); MEAN CORPUSCULAR HEMOGLOB 29.9 pg (26.0-34.0); MEAN CORPUSCULAR VOLUME 94.5 fL (80-100); MEAN PLATELET VOLUME 11.3 fL (9.2-13.0); MONOCYTES 8.3 %; MONOCYTES ABSOLUTE 0.46 10/3/uL (0.21-1.20); NEUTROPHILS 67.2 %; PLATELET COUNT 163 10/3/uL (150-400); RBC DISTRIBUTION WIDTH 13.9 % (12.0-16.0); RED CELL COUNT 4.35 10/6/uL (4.7-6.1); WHITE BLOOD CELLS 5.5 10/3/uL (4.5-10.5)
[2017-01-07 06:09] LABS: MANUAL DIFF NO %
[2017-01-07 06:16] LABS: BUN (BLOOD UREA NITROGEN) 19 MG/DL (6-23); CALCIUM, SERUM 8.9 MG/DL (8.5-10.4); CHLORIDE, SERUM 105 MMOL/L (96-112); CO2 (CARBON DIOXIDE) 28 MMOL/L (24-34); CREATININE 0.94 MG/DL (0.70-1.30); GFR AFRICAN AMERICAN 100 ML/MIN (>=60); GFR NON AFRICAN AMERICAN 87 ML/MIN (>=60); PHOSPHORUS, SERUM 3.4 MG/DL (2.5-4.5); POTASSIUM, SERUM 4.1 MMOL/L (3.5-5.3); SODIUM, SERUM 143 MMOL/L (135-148)
[2017-01-07 06:17] LABS: GLUCOSE, SERUM 176 MG/DL (60-99)
[2017-01-09 02:02] LABS: BASOPHILS 0.6 %; BASOPHILS ABSOLUTE 0.04 10/3/uL (0.0-0.16); EOSINOPHILS 2.5 %; EOSINOPHILS ABSOLUTE 0.16 10/3/uL (0.0-0.53); IMMATURE GRANULOCYTES 0.3 %; IMMATURE GRANULOCYTES ABSOLUTE 0.02 10/3/uL (0.0-0.11); LYMPHOCYTES 28.5 %; LYMPHOCYTES ABSOLUTE 1.83 10/3/uL (0.67-4.30); MEAN CORPUSCULAR HEMOGLOB 31.9 pg (26.0-34.0); MEAN CORPUSCULAR VOLUME 93.1 fL (80-100); MEAN PLATELET VOLUME 11.1 fL (9.2-13.0); MONOCYTES 7.3 %; MONOCYTES ABSOLUTE 0.47 10/3/uL (0.21-1.20); NEUTROPHILS 60.8 %; NEUTROPHILS ABSOLUTE 3.89 10/3/uL (2.02-8.40); PLATELET COUNT 176 10/3/uL (150-400); RBC DISTRIBUTION WIDTH 13.7 % (12.0-16.0); RED CELL COUNT 4.08 10/6/uL (4.7-6.1); WHITE BLOOD CELLS 6.4 10/3/uL (4.5-10.5)
[2017-01-09 02:05] LABS: MANUAL DIFF NO %; MEAN CORPUS HGB CONC 34.2 g/dL (32.0-36.0)
[2017-01-09 02:12] LABS: PARTIAL THROMBO TIME 35.7 SEC (22.5-37.2)
[2017-01-09 02:15] LABS: BUN (BLOOD UREA NITROGEN) 17 MG/DL (6-23); CALCIUM, SERUM 9.2 MG/DL (8.5-10.4); CHLORIDE, SERUM 106 MMOL/L (96-112); CO2 (CARBON DIOXIDE) 27 MMOL/L (24-34); CREATININE 0.86 MG/DL (0.70-1.30); GFR AFRICAN AMERICAN 108 ML/MIN (>=60); GFR NON AFRICAN AMERICAN 93 ML/MIN (>=60); GLUCOSE, SERUM 141 MG/DL (60-99); PHOSPHORUS, SERUM 3.4 MG/DL (2.5-4.5); SODIUM, SERUM 143 MMOL/L (135-148)
[2017-01-10 02:02] LABS: BASOPHILS 0.5 %; BASOPHILS ABSOLUTE 0.04 10/3/uL (0.0-0.16); EOSINOPHILS 1.7 %; EOSINOPHILS ABSOLUTE 0.13 10/3/uL (0.0-0.53); HEMATOCRIT 40.3 % (40.0-51.0); HEMOGLOBIN 13.5 g/dL (13.6-17.8); IMMATURE GRANULOCYTES 0.4 %; IMMATURE GRANULOCYTES ABSOLUTE 0.03 10/3/uL (0.0-0.11); LYMPHOCYTES 29.4 %; LYMPHOCYTES ABSOLUTE 2.31 10/3/uL (0.67-4.30); MEAN CORPUS HGB CONC 33.5 g/dL (32.0-36.0); MEAN CORPUSCULAR HEMOGLOB 31.5 pg (26.0-34.0); MEAN CORPUSCULAR VOLUME 94.2 fL (80-100); MEAN PLATELET VOLUME 11.8 fL (9.2-13.0); MONOCYTES 7.1 %; MONOCYTES ABSOLUTE 0.56 10/3/uL (0.21-1.20); NEUTROPHILS 60.9 %; NEUTROPHILS ABSOLUTE 4.79 10/3/uL (2.02-8.40); PLATELET COUNT 196 10/3/uL (150-400); RBC DISTRIBUTION WIDTH 13.8 % (12.0-16.0); RED CELL COUNT 4.28 10/6/uL (4.7-6.1); WHITE BLOOD CELLS 7.9 10/3/uL (4.5-10.5)
[2017-01-10 02:10] LABS: MANUAL DIFF NO %
[2017-01-10 02:24] LABS: A/G RATIO 0.9 (0.7-1.9); ALBUMIN 3.3 G/DL (3.5-5.0); ALKALINE PHOSPHATASE 74 U/L (45-117); BUN (BLOOD UREA NITROGEN) 16 MG/DL (6-23); CALCIUM, SERUM 9.1 MG/DL (8.5-10.4); CHLORIDE, SERUM 105 MMOL/L (96-112); CO2 (CARBON DIOXIDE) 27 MMOL/L (24-34); CREATININE 0.88 MG/DL (0.70-1.30); GFR AFRICAN AMERICAN 107 ML/MIN (>=60); GFR NON AFRICAN AMERICAN 92 ML/MIN (>=60); GLOBULIN 3.8 G/DL (2.5-4.1); GLUCOSE, SERUM 149 MG/DL (60-99); PHOSPHORUS, SERUM 3.8 MG/DL (2.5-4.5); SGOT(AST) 22 U/L (5-40); SGPT(ALT) 53 U/L (5-65); SODIUM, SERUM 141 MMOL/L (135-148); TOTAL BILIRUBIN 0.6 MG/DL (0-1.2); TOTAL PROTEIN 7.1 G/DL (6.0-8.5)
[2017-01-10 07:04] LABS: ASCORBIC ACID (UR NOT ORDER) 20 (NEG); BILIRUBIN, URINE NEGATIVE (NEG); KETONE, URINE NEGATIVE (NEG); LEUKOCYTE ESTERASE(NOT OR NEG (NEG); WBC (NOT ORDERED) (RFLEX) < 1 (0-5)
[2017-01-10 08:04] LABS: TEG - ANGLE 47.7 DEG (53-72); TEG - COAGULATION INDEX -5.4 (-3 TO 3); TEG - MAXIMUM AMPLITUDE 54.8 MM (50-70)
[2017-01-10 08:06] LABS: MAX AMP (ADP) 28.9 MM (35-68)
[2017-01-10 13:15] LABS: TEG - RATE 7.4 MIN (5.0-10.0)
[2017-01-10 13:16] LABS: TEG - ANGLE 63.1 DEG (53-72); TEG - COAGULATION INDEX 0.6 (-3 TO 3); TEG - MAXIMUM AMPLITUDE 65.2 MM (50-70)
[2017-01-10 14:10] LABS: BE (BASE EXCESS) -3.4 MEQ/L (0 +/- 2.5); CARBOXYHEMOGLOBIN 1.3 % (0-3); HCO3 (ACTUAL BICARBONATE) 20.9 MEQ/L (23-27); HEMOBLOGIN CONTENT 13.3 G/DL (14-18); INSTRUMENT SERIAL # 11843; METHEMOGLOBIN 0.5 % (0-3); MODE SIMV; O2 CONTENT 18.4 VOL% (18-24); OPERATOR ID 19104; PCO2 (CO2 TENSION) 35 MMHG (35-45); PO2 (O2 TENSION) 161 MMHG (79-93); SAMPLE Arterial; TIDAL VOLUME 800 ML; pH 7.39 (7.37-7.43)
[2017-01-10 14:17] LABS: HEMATOCRIT 38.5 % (40.0-51.0); PLATELET COUNT 149 10/3/uL (150-400)
[2017-01-10 14:25] LABS: FIBRINOGEN 422 MG/DL (230-462); INTERNATIONAL NORMAL RATI 1.2 UNITS (-); PARTIAL THROMBO TIME 30.8 SEC (22.5-37.2); PROTIME (NOT ORD) 15.5 SEC (12.0-14.5)
[2017-01-10 14:32] LABS: BUN (BLOOD UREA NITROGEN) 14 MG/DL (6-23); CALCIUM, SERUM 9.7 MG/DL (8.5-10.4); CHLORIDE, SERUM 111 MMOL/L (96-112); CO2 (CARBON DIOXIDE) 24 MMOL/L (24-34); GFR AFRICAN AMERICAN 83 ML/MIN (>=60); GFR NON AFRICAN AMERICAN 72 ML/MIN (>=60); GLUCOSE, SERUM 174 MG/DL (60-99); POTASSIUM, SERUM 3.6 MMOL/L (3.5-5.3); SODIUM, SERUM 145 MMOL/L (135-148)
[2017-01-10 16:58] LABS: BE (BASE EXCESS) -3.5 MEQ/L (0 +/- 2.5); CARBOXYHEMOGLOBIN 0.7 % (0-3); HCO3 (ACTUAL BICARBONATE) 22.9 MEQ/L (23-27); HEMOBLOGIN CONTENT 12.7 G/DL (14-18); INSTRUMENT SERIAL # 11843; METHEMOGLOBIN 0.4 % (0-3); O2 CONTENT 16.5 VOL% (18-24); OPERATOR ID 19104; PCO2 (CO2 TENSION) 47 MMHG (35-45); PO2 (O2 TENSION) 76 MMHG (79-93); SAMPLE Arterial; pH 7.31 (7.37-7.43)
[2017-01-10 18:09] LABS: BE (BASE EXCESS) -3.7 MEQ/L (0 +/- 2.5); CARBOXYHEMOGLOBIN 0.8 % (0-3); DEVICE NC; HCO3 (ACTUAL BICARBONATE) 22.3 MEQ/L (23-27); HEMOBLOGIN CONTENT 12.5 G/DL (14-18); INSTRUMENT SERIAL # 11843; METHEMOGLOBIN 0.4 % (0-3); O2 CONTENT 16.2 VOL% (18-24); OPERATOR ID 32214; PCO2 (CO2 TENSION) 44 MMHG (35-45); PO2 (O2 TENSION) 70 MMHG (79-93); SAMPLE Arterial; pH 7.32 (7.37-7.43)
[2017-01-10 20:24] LABS: HEMATOCRIT 33.8 % (40.0-51.0); HEMOGLOBIN 11.5 g/dL (13.6-17.8)
[2017-01-10 20:40] LABS: BUN (BLOOD UREA NITROGEN) 15 MG/DL (6-23); CHLORIDE, SERUM 113 MMOL/L (96-112); CO2 (CARBON DIOXIDE) 22 MMOL/L (24-34); CREATININE 1.03 MG/DL (0.70-1.30); GFR AFRICAN AMERICAN 90 ML/MIN (>=60); GFR NON AFRICAN AMERICAN 77 ML/MIN (>=60); POTASSIUM, SERUM 4.2 MMOL/L (3.5-5.3); SODIUM, SERUM 145 MMOL/L (135-148)
[2017-01-10 20:41] LABS: CALCIUM, SERUM 8.7 MG/DL (8.5-10.4); GLUCOSE, SERUM 138 MG/DL (60-99)
[2017-01-11 03:28] LABS: HEMATOCRIT 34.2 % (40.0-51.0); HEMOGLOBIN 11.4 g/dL (13.6-17.8); MEAN CORPUS HGB CONC 33.3 g/dL (32.0-36.0); MEAN CORPUSCULAR HEMOGLOB 31.8 pg (26.0-34.0); MEAN CORPUSCULAR VOLUME 95.3 fL (80-100); MEAN PLATELET VOLUME 10.1 fL (9.2-13.0); PLATELET COUNT 170 10/3/uL (150-400); RBC DISTRIBUTION WIDTH 14.1 % (12.0-16.0); RED CELL COUNT 3.59 10/6/uL (4.7-6.1)
[2017-01-11 03:32] LABS: MANUAL DIFF YES %; WHITE BLOOD CELLS 16.1 10/3/uL (4.5-10.5)
[2017-01-11 03:40] LABS: BUN (BLOOD UREA NITROGEN) 14 MG/DL (6-23); CALCIUM, SERUM 8.6 MG/DL (8.5-10.4); CHLORIDE, SERUM 115 MMOL/L (96-112); CO2 (CARBON DIOXIDE) 24 MMOL/L (24-34); CREATININE 1.01 MG/DL (0.70-1.30); GFR AFRICAN AMERICAN 92 ML/MIN (>=60); GFR NON AFRICAN AMERICAN 79 ML/MIN (>=60); GLUCOSE, SERUM 116 MG/DL (60-99); POTASSIUM, SERUM 4.5 MMOL/L (3.5-5.3); SODIUM, SERUM 147 MMOL/L (135-148)
[2017-01-11 03:44] LABS: PHOSPHORUS, SERUM 2.6 MG/DL (2.5-4.5)
[2017-01-11 03:46] LABS: BAND NEUTROPHILS 2 %; LYMPHOCYTES 2 %; LYMPHOCYTES ABSOLUTE (CALC) 0.32 10/3/uL (0.67-4.30); MONOCYTES 1 %; MONOCYTES ABSOLUTE (CALC) 0.16 10/3/uL (0.21-1.20); NEUTROPHILS ABSOLUTE (CALC) 15.62 10/3/uL (2.02-8.40); PLATELET ESTIMATE ADQ (ADEQUATE); RBC MORPHOLOGY NORM (NORMAL); SEGMENTED NEUTROPHIL (0) 95 %; TOTAL NUCLEATED CELLS 100
[2017-01-11 15:46] LABS: HEMATOCRIT 35.4 % (40.0-51.0); HEMOGLOBIN 11.5 g/dL (13.6-17.8)
[2017-01-11 15:55] LABS: POTASSIUM, SERUM 4.9 MMOL/L (3.5-5.3)
[2017-01-12 03:47] LABS: BASOPHILS 0.1 %; BASOPHILS ABSOLUTE 0.02 10/3/uL (0.0-0.16); EOSINOPHILS 0 %; HEMATOCRIT 35.7 % (40.0-51.0); HEMOGLOBIN 11.2 g/dL (13.6-17.8); IMMATURE GRANULOCYTES 0.6 %; IMMATURE GRANULOCYTES ABSOLUTE 0.12 10/3/uL (0.0-0.11); LYMPHOCYTES 5.4 %; LYMPHOCYTES ABSOLUTE 1.09 10/3/uL (0.67-4.30); MEAN CORPUSCULAR HEMOGLOB 30.7 pg (26.0-34.0); MEAN CORPUSCULAR VOLUME 97.8 fL (80-100); MEAN PLATELET VOLUME 10.5 fL (9.2-13.0); MONOCYTES 8.1 %; MONOCYTES ABSOLUTE 1.62 10/3/uL (0.21-1.20); NEUTROPHILS 85.8 %; NEUTROPHILS ABSOLUTE 17.21 10/3/uL (2.02-8.40); PLATELET COUNT 197 10/3/uL (150-400); RBC DISTRIBUTION WIDTH 15.5 % (12.0-16.0); RED CELL COUNT 3.65 10/6/uL (4.7-6.1); WHITE BLOOD CELLS 20.1 10/3/uL (4.5-10.5)
[2017-01-12 03:49] LABS: MEAN CORPUS HGB CONC 31.4 g/dL (32.0-36.0)
[2017-01-12 03:50] LABS: MANUAL DIFF NO %
[2017-01-12 03:57] LABS: CALCIUM, SERUM 8.8 MG/DL (8.5-10.4); CHLORIDE, SERUM 109 MMOL/L (96-112); CO2 (CARBON DIOXIDE) 28 MMOL/L (24-34); CREATININE 1.25 MG/DL (0.70-1.30); GFR AFRICAN AMERICAN 71 ML/MIN (>=60); GFR NON AFRICAN AMERICAN 61 ML/MIN (>=60); POTASSIUM, SERUM 5.4 MMOL/L (3.5-5.3); SODIUM, SERUM 141 MMOL/L (135-148)
[2017-01-12 03:59] LABS: BUN (BLOOD UREA NITROGEN) 19 MG/DL (6-23); GLUCOSE, SERUM 243 MG/DL (60-99)
[2017-01-13 06:26] LABS: BASOPHILS 0.1 %; BASOPHILS ABSOLUTE 0.03 10/3/uL (0.0-0.16); EOSINOPHILS 0 %; HEMATOCRIT 32.4 % (40.0-51.0); HEMOGLOBIN 10.4 g/dL (13.6-17.8); IMMATURE GRANULOCYTES 0.4 %; IMMATURE GRANULOCYTES ABSOLUTE 0.09 10/3/uL (0.0-0.11); MEAN CORPUS HGB CONC 32.1 g/dL (32.0-36.0); MEAN CORPUSCULAR VOLUME 96.4 fL (80-100); MEAN PLATELET VOLUME 10.6 fL (9.2-13.0); MONOCYTES 9.1 %; MONOCYTES ABSOLUTE 1.82 10/3/uL (0.21-1.20); NEUTROPHILS 85.4 %; NEUTROPHILS ABSOLUTE 17.13 10/3/uL (2.02-8.40); PLATELET COUNT 244 10/3/uL (150-400); RBC DISTRIBUTION WIDTH 15.9 % (12.0-16.0); RED CELL COUNT 3.36 10/6/uL (4.7-6.1); WHITE BLOOD CELLS 20.1 10/3/uL (4.5-10.5)
[2017-01-13 06:32] LABS: MANUAL DIFF NO %
[2017-01-13 06:56] LABS: BUN (BLOOD UREA NITROGEN) 41 MG/DL (6-23); CALCIUM, SERUM 9.4 MG/DL (8.5-10.4); CHLORIDE, SERUM 104 MMOL/L (96-112); CO2 (CARBON DIOXIDE) 20 MMOL/L (24-34); CREATININE 1.47 MG/DL (0.70-1.30); GFR AFRICAN AMERICAN 58 ML/MIN (>=60); GFR NON AFRICAN AMERICAN 50 ML/MIN (>=60); GLUCOSE, SERUM 271 MG/DL (60-99); POTASSIUM, SERUM 4.4 MMOL/L (3.5-5.3); SODIUM, SERUM 138 MMOL/L (135-148)
[2017-01-13 21:56] LABS: ASCORBIC ACID (UR NOT ORDER) 40 (NEG); BILIRUBIN, URINE NEGATIVE (NEG); KETONE, URINE TRACE MG/DL (NEG); LEUKOCYTE ESTERASE(NOT OR NEG (NEG); WBC (NOT ORDERED) (RFLEX) 1 (0-5)
[2017-01-13 22:37] LABS: BASOPHILS 0.1 %; BASOPHILS ABSOLUTE 0.01 10/3/uL (0.0-0.16); EOSINOPHILS 0.1 %; EOSINOPHILS ABSOLUTE 0.02 10/3/uL (0.0-0.53); IMMATURE GRANULOCYTES 0.5 %; IMMATURE GRANULOCYTES ABSOLUTE 0.08 10/3/uL (0.0-0.11); LYMPHOCYTES 6.5 %; LYMPHOCYTES ABSOLUTE 1.06 10/3/uL (0.67-4.30); MANUAL DIFF NO %; MEAN CORPUS HGB CONC 33.3 g/dL (32.0-36.0); MEAN CORPUSCULAR HEMOGLOB 31.6 pg (26.0-34.0); MEAN CORPUSCULAR VOLUME 94.7 fL (80-100); MEAN PLATELET VOLUME 10.4 fL (9.2-13.0); MONOCYTES 8.2 %; MONOCYTES ABSOLUTE 1.34 10/3/uL (0.21-1.20); NEUTROPHILS 84.6 %; NEUTROPHILS ABSOLUTE 13.82 10/3/uL (2.02-8.40); PLATELET COUNT 236 10/3/uL (150-400); RBC DISTRIBUTION WIDTH 15.4 % (12.0-16.0); RED CELL COUNT 2.85 10/6/uL (4.7-6.1); WHITE BLOOD CELLS 16.3 10/3/uL (4.5-10.5)
[2017-01-13 22:45] LABS: INTERNATIONAL NORMAL RATI 1.3 UNITS (-); PROTIME (NOT ORD) 15.6 SEC (12.0-14.5)
[2017-01-13 22:46] LABS: PARTIAL THROMBO TIME 53.8 SEC (22.5-37.2)
[2017-01-13 23:03] LABS: CALCIUM, SERUM 8.8 MG/DL (8.5-10.4); CHLORIDE, SERUM 103 MMOL/L (96-112); CREATININE 1.09 MG/DL (0.70-1.30); GFR AFRICAN AMERICAN 84 ML/MIN (>=60); GFR NON AFRICAN AMERICAN 72 ML/MIN (>=60); GLUCOSE, SERUM 260 MG/DL (60-99); POTASSIUM, SERUM 3.7 MMOL/L (3.5-5.3); SODIUM, SERUM 138 MMOL/L (135-148)
[2017-01-13 23:04] LABS: BUN (BLOOD UREA NITROGEN) 35 MG/DL (6-23); CO2 (CARBON DIOXIDE) 25 MMOL/L (24-34)
[2017-01-14 03:53] LABS: BASOPHILS 0.1 %; BASOPHILS ABSOLUTE 0.01 10/3/uL (0.0-0.16); EOSINOPHILS 0.1 %; EOSINOPHILS ABSOLUTE 0.02 10/3/uL (0.0-0.53); HEMATOCRIT 29.1 % (40.0-51.0); HEMOGLOBIN 9.9 g/dL (13.6-17.8); IMMATURE GRANULOCYTES 0.5 %; IMMATURE GRANULOCYTES ABSOLUTE 0.07 10/3/uL (0.0-0.11); LYMPHOCYTES 7.6 %; LYMPHOCYTES ABSOLUTE 1.13 10/3/uL (0.67-4.30); MEAN CORPUSCULAR HEMOGLOB 32.5 pg (26.0-34.0); MEAN CORPUSCULAR VOLUME 95.4 fL (80-100); MEAN PLATELET VOLUME 10.3 fL (9.2-13.0); MONOCYTES ABSOLUTE 1.35 10/3/uL (0.21-1.20); NEUTROPHILS 82.7 %; NEUTROPHILS ABSOLUTE 12.34 10/3/uL (2.02-8.40); PLATELET COUNT 250 10/3/uL (150-400); RBC DISTRIBUTION WIDTH 15.5 % (12.0-16.0); RED CELL COUNT 3.05 10/6/uL (4.7-6.1); WHITE BLOOD CELLS 14.9 10/3/uL (4.5-10.5)
[2017-01-14 03:54] LABS: MANUAL DIFF NO %
[2017-01-14 04:06] LABS: CALCIUM, SERUM 9.1 MG/DL (8.5-10.4); CHLORIDE, SERUM 104 MMOL/L (96-112); CO2 (CARBON DIOXIDE) 25 MMOL/L (24-34); CREATININE 1.08 MG/DL (0.70-1.30); GFR AFRICAN AMERICAN 85 ML/MIN (>=60); GFR NON AFRICAN AMERICAN 73 ML/MIN (>=60); GLUCOSE, SERUM 261 MG/DL (60-99); POTASSIUM, SERUM 3.9 MMOL/L (3.5-5.3); SODIUM, SERUM 139 MMOL/L (135-148)
[2017-01-14 04:07] LABS: BUN (BLOOD UREA NITROGEN) 29 MG/DL (6-23)
[2017-01-14 22:27] LABS: HEMATOCRIT 30.4 % (40.0-51.0); HEMOGLOBIN 9.7 g/dL (13.6-17.8); MEAN CORPUSCULAR HEMOGLOB 30.7 pg (26.0-34.0); MEAN CORPUSCULAR VOLUME 96.2 fL (80-100); MEAN PLATELET VOLUME 10.3 fL (9.2-13.0); PLATELET COUNT 273 10/3/uL (150-400); RBC DISTRIBUTION WIDTH 15.4 % (12.0-16.0); RED CELL COUNT 3.16 10/6/uL (4.7-6.1); WHITE BLOOD CELLS 13.6 10/3/uL (4.5-10.5)
[2017-01-14 22:33] LABS: MANUAL DIFF YES %; MEAN CORPUS HGB CONC 31.9 g/dL (32.0-36.0)
[2017-01-14 22:38] LABS: CALCIUM, SERUM 8.9 MG/DL (8.5-10.4); CHLORIDE, SERUM 105 MMOL/L (96-112); CO2 (CARBON DIOXIDE) 24 MMOL/L (24-34); CREATININE 0.86 MG/DL (0.70-1.30); GFR AFRICAN AMERICAN 108 ML/MIN (>=60); GFR NON AFRICAN AMERICAN 93 ML/MIN (>=60); POTASSIUM, SERUM 4.3 MMOL/L (3.5-5.3); SODIUM, SERUM 140 MMOL/L (135-148)
[2017-01-14 22:40] LABS: BUN (BLOOD UREA NITROGEN) 25 MG/DL (6-23); GLUCOSE, SERUM 164 MG/DL (60-99)
[2017-01-14 23:29] LABS: BAND NEUTROPHILS 1 %; BASOPHILS 1 %; BASOPHILS ABSOLUTE (CALC) 0.14 10/3/uL (0.0-0.16); LYMPHOCYTES 4 %; LYMPHOCYTES ABSOLUTE (CALC) 0.54 10/3/uL (0.67-4.30); MONOCYTES 11 %; NEUTROPHILS ABSOLUTE (CALC) 11.42 10/3/uL (2.02-8.40); PLATELET ESTIMATE ADQ (ADEQUATE); RBC MORPHOLOGY NORM (NORMAL); SEGMENTED NEUTROPHIL (0) 83 %; TOTAL NUCLEATED CELLS 100
[2017-01-15 00:58] LABS: BASOPHILS 0.2 %; BASOPHILS ABSOLUTE 0.03 10/3/uL (0.0-0.16); EOSINOPHILS 0.4 %; EOSINOPHILS ABSOLUTE 0.06 10/3/uL (0.0-0.53); HEMATOCRIT 29.5 % (40.0-51.0); HEMOGLOBIN 9.6 g/dL (13.6-17.8); IMMATURE GRANULOCYTES 0.9 %; IMMATURE GRANULOCYTES ABSOLUTE 0.13 10/3/uL (0.0-0.11); LYMPHOCYTES 9.5 %; LYMPHOCYTES ABSOLUTE 1.35 10/3/uL (0.67-4.30); MEAN CORPUS HGB CONC 32.5 g/dL (32.0-36.0); MEAN CORPUSCULAR HEMOGLOB 30.9 pg (26.0-34.0); MEAN CORPUSCULAR VOLUME 94.9 fL (80-100); MEAN PLATELET VOLUME 10.1 fL (9.2-13.0); MONOCYTES 11.6 %; MONOCYTES ABSOLUTE 1.66 10/3/uL (0.21-1.20); NEUTROPHILS 77.4 %; NEUTROPHILS ABSOLUTE 11.04 10/3/uL (2.02-8.40); NUCLEATED RED BLOOD CELLS 0.4 /100WBC (0-0); PLATELET COUNT 281 10/3/uL (150-400); RBC DISTRIBUTION WIDTH 15.3 % (12.0-16.0); RED CELL COUNT 3.11 10/6/uL (4.7-6.1); WHITE BLOOD CELLS 14.3 10/3/uL (4.5-10.5)
[2017-01-15 01:00] LABS: MANUAL DIFF NO %
[2017-01-15 01:06] LABS: BUN (BLOOD UREA NITROGEN) 26 MG/DL (6-23); CALCIUM, SERUM 8.5 MG/DL (8.5-10.4); CHLORIDE, SERUM 107 MMOL/L (96-112); CO2 (CARBON DIOXIDE) 23 MMOL/L (24-34); CREATININE 0.85 MG/DL (0.70-1.30); GFR AFRICAN AMERICAN 108 ML/MIN (>=60); GFR NON AFRICAN AMERICAN 93 ML/MIN (>=60); GLUCOSE, SERUM 161 MG/DL (60-99); POTASSIUM, SERUM 5.1 MMOL/L (3.5-5.3); SODIUM, SERUM 140 MMOL/L (135-148)
[2017-01-15 07:11] LABS: BASOPHILS 0.2 %; BASOPHILS ABSOLUTE 0.03 10/3/uL (0.0-0.16); EOSINOPHILS 0.5 %; EOSINOPHILS ABSOLUTE 0.06 10/3/uL (0.0-0.53); HEMATOCRIT 28.7 % (40.0-51.0); HEMOGLOBIN 9.4 g/dL (13.6-17.8); IMMATURE GRANULOCYTES 0.7 %; IMMATURE GRANULOCYTES ABSOLUTE 0.09 10/3/uL (0.0-0.11); LYMPHOCYTES 9.3 %; LYMPHOCYTES ABSOLUTE 1.15 10/3/uL (0.67-4.30); MEAN CORPUS HGB CONC 32.8 g/dL (32.0-36.0); MEAN CORPUSCULAR HEMOGLOB 31.4 pg (26.0-34.0); MEAN PLATELET VOLUME 9.7 fL (9.2-13.0); MONOCYTES 10.1 %; MONOCYTES ABSOLUTE 1.25 10/3/uL (0.21-1.20); NEUTROPHILS 79.2 %; NEUTROPHILS ABSOLUTE 9.77 10/3/uL (2.02-8.40); PLATELET COUNT 268 10/3/uL (150-400); RBC DISTRIBUTION WIDTH 15.4 % (12.0-16.0); RED CELL COUNT 2.99 10/6/uL (4.7-6.1); WHITE BLOOD CELLS 12.4 10/3/uL (4.5-10.5)
[2017-01-15 07:13] LABS: MANUAL DIFF NO %
[2017-01-15 07:18] LABS: INTERNATIONAL NORMAL RATI 1.2 UNITS (-); PARTIAL THROMBO TIME 39.6 SEC (22.5-37.2); PROTIME (NOT ORD) 15.1 SEC (12.0-14.5)
[2017-01-15 07:26] LABS: BUN (BLOOD UREA NITROGEN) 23 MG/DL (6-23); CALCIUM, SERUM 8.5 MG/DL (8.5-10.4); CHLORIDE, SERUM 108 MMOL/L (96-112); CO2 (CARBON DIOXIDE) 23 MMOL/L (24-34); CREATININE 0.87 MG/DL (0.70-1.30); GFR AFRICAN AMERICAN 107 ML/MIN (>=60); GFR NON AFRICAN AMERICAN 92 ML/MIN (>=60); GLUCOSE, SERUM 159 MG/DL (60-99); POTASSIUM, SERUM 5.3 MMOL/L (3.5-5.3); SODIUM, SERUM 142 MMOL/L (135-148)
[2017-01-15 14:19] LABS: A/G RATIO 0.7 (0.7-1.9); ALBUMIN 2.8 G/DL (3.5-5.0); ALKALINE PHOSPHATASE 66 U/L (45-117); BUN (BLOOD UREA NITROGEN) 22 MG/DL (6-23); CALCIUM, SERUM 8.7 MG/DL (8.5-10.4); CHLORIDE, SERUM 104 MMOL/L (96-112); CO2 (CARBON DIOXIDE) 26 MMOL/L (24-34); CREATININE 0.88 MG/DL (0.70-1.30); GFR AFRICAN AMERICAN 107 ML/MIN (>=60); GFR NON AFRICAN AMERICAN 92 ML/MIN (>=60); GLOBULIN 4.1 G/DL (2.5-4.1); POTASSIUM, SERUM 5.3 MMOL/L (3.5-5.3); SGOT(AST) 21 U/L (5-40); SGPT(ALT) 42 U/L (5-65); SODIUM, SERUM 141 MMOL/L (135-148); TOTAL BILIRUBIN 0.7 MG/DL (0-1.2); TOTAL PROTEIN 6.9 G/DL (6.0-8.5)
[2017-01-15 14:24] LABS: GLUCOSE, SERUM 209 MG/DL (60-99); ULTRASENSITIVE TSH 0.182 MCIU/ML (0.358-3.740)
[2017-01-15 17:19] LABS: BASOPHILS 0.1 %; BASOPHILS ABSOLUTE 0.01 10/3/uL (0.0-0.16); EOSINOPHILS 0.5 %; EOSINOPHILS ABSOLUTE 0.06 10/3/uL (0.0-0.53); HEMOGLOBIN 9.2 g/dL (13.6-17.8); IMMATURE GRANULOCYTES 0.9 %; IMMATURE GRANULOCYTES ABSOLUTE 0.11 10/3/uL (0.0-0.11); LYMPHOCYTES 9.5 %; LYMPHOCYTES ABSOLUTE 1.15 10/3/uL (0.67-4.30); MEAN CORPUS HGB CONC 32.9 g/dL (32.0-36.0); MEAN CORPUSCULAR HEMOGLOB 31.9 pg (26.0-34.0); MEAN CORPUSCULAR VOLUME 97.2 fL (80-100); MEAN PLATELET VOLUME 10.1 fL (9.2-13.0); MONOCYTES 7.9 %; MONOCYTES ABSOLUTE 0.96 10/3/uL (0.21-1.20); NEUTROPHILS 81.1 %; NEUTROPHILS ABSOLUTE 9.79 10/3/uL (2.02-8.40); PLATELET COUNT 268 10/3/uL (150-400); RBC DISTRIBUTION WIDTH 15.5 % (12.0-16.0); RED CELL COUNT 2.88 10/6/uL (4.7-6.1); WHITE BLOOD CELLS 12.1 10/3/uL (4.5-10.5)
[2017-01-15 17:20] LABS: MANUAL DIFF NO %
[2017-01-15 17:31] LABS: BUN (BLOOD UREA NITROGEN) 19 MG/DL (6-23); CO2 (CARBON DIOXIDE) 24 MMOL/L (24-34); CREATININE 0.94 MG/DL (0.70-1.30); GFR AFRICAN AMERICAN 100 ML/MIN (>=60); GFR NON AFRICAN AMERICAN 87 ML/MIN (>=60); POTASSIUM, SERUM 4.5 MMOL/L (3.5-5.3)
[2017-01-15 17:33] LABS: CALCIUM, SERUM 7.7 MG/DL (8.5-10.4); CHLORIDE, SERUM 93 MMOL/L (96-112); GLUCOSE, SERUM 578 MG/DL (60-99); SODIUM, SERUM 129 MMOL/L (135-148)
[2017-01-15 18:04] LABS: PARTIAL THROMBO TIME > 150.0 SEC (22.5-37.2)
[2017-01-15 18:39] LABS: BUN (BLOOD UREA NITROGEN) 21 MG/DL (6-23); CALCIUM, SERUM 7.6 MG/DL (8.5-10.4); CHLORIDE, SERUM 91 MMOL/L (96-112); CO2 (CARBON DIOXIDE) 25 MMOL/L (24-34); GFR AFRICAN AMERICAN 93 ML/MIN (>=60); GFR NON AFRICAN AMERICAN 80 ML/MIN (>=60); POTASSIUM, SERUM 4.2 MMOL/L (3.5-5.3); SODIUM, SERUM 128 MMOL/L (135-148)
[2017-01-15 18:40] LABS: GLUCOSE, SERUM 568 MG/DL (60-99)
[2017-01-15 20:02] LABS: BUN (BLOOD UREA NITROGEN) 21 MG/DL (6-23); CALCIUM, SERUM 8.3 MG/DL (8.5-10.4); CHLORIDE, SERUM 103 MMOL/L (96-112); CO2 (CARBON DIOXIDE) 28 MMOL/L (24-34); CREATININE 0.84 MG/DL (0.70-1.30); GFR AFRICAN AMERICAN 109 ML/MIN (>=60); GFR NON AFRICAN AMERICAN 94 ML/MIN (>=60); GLUCOSE, SERUM 156 MG/DL (60-99); POTASSIUM, SERUM 4.4 MMOL/L (3.5-5.3); SODIUM, SERUM 142 MMOL/L (135-148)
[2017-01-15 23:36] LABS: BUN (BLOOD UREA NITROGEN) 23 MG/DL (6-23); CALCIUM, SERUM 8.1 MG/DL (8.5-10.4); CHLORIDE, SERUM 102 MMOL/L (96-112); CO2 (CARBON DIOXIDE) 28 MMOL/L (24-34); CREATININE 0.95 MG/DL (0.70-1.30); GFR AFRICAN AMERICAN 99 ML/MIN (>=60); GFR NON AFRICAN AMERICAN 85 ML/MIN (>=60); GLUCOSE, SERUM 183 MG/DL (60-99); POTASSIUM, SERUM 4.2 MMOL/L (3.5-5.3); SODIUM, SERUM 140 MMOL/L (135-148)
[2017-01-16 04:53] LABS: BASOPHILS 0.2 %; BASOPHILS ABSOLUTE 0.03 10/3/uL (0.0-0.16); EOSINOPHILS 1.4 %; EOSINOPHILS ABSOLUTE 0.22 10/3/uL (0.0-0.53); HEMATOCRIT 25.5 % (40.0-51.0); HEMOGLOBIN 8.2 g/dL (13.6-17.8); IMMATURE GRANULOCYTES 1.2 %; IMMATURE GRANULOCYTES ABSOLUTE 0.19 10/3/uL (0.0-0.11); LYMPHOCYTES 11.9 %; LYMPHOCYTES ABSOLUTE 1.84 10/3/uL (0.67-4.30); MEAN CORPUS HGB CONC 32.2 g/dL (32.0-36.0); MEAN CORPUSCULAR HEMOGLOB 30.5 pg (26.0-34.0); MEAN CORPUSCULAR VOLUME 94.8 fL (80-100); MEAN PLATELET VOLUME 9.8 fL (9.2-13.0); MONOCYTES 10.2 %; MONOCYTES ABSOLUTE 1.59 10/3/uL (0.21-1.20); NEUTROPHILS 75.1 %; NEUTROPHILS ABSOLUTE 11.65 10/3/uL (2.02-8.40); RBC DISTRIBUTION WIDTH 15.3 % (12.0-16.0); RED CELL COUNT 2.69 10/6/uL (4.7-6.1); WHITE BLOOD CELLS 15.5 10/3/uL (4.5-10.5)
[2017-01-16 04:54] LABS: MANUAL DIFF NO %; PLATELET COUNT 360 10/3/uL (150-400)
[2017-01-16 05:04] LABS: INTERNATIONAL NORMAL RATI 1.3 UNITS (-); PROTIME (NOT ORD) 15.8 SEC (12.0-14.5)
[2017-01-16 05:05] LABS: PARTIAL THROMBO TIME 82.7 SEC (22.5-37.2)
[2017-01-16 05:32] LABS: BUN (BLOOD UREA NITROGEN) 22 MG/DL (6-23); CALCIUM, SERUM 8.4 MG/DL (8.5-10.4); CHLORIDE, SERUM 102 MMOL/L (96-112); CO2 (CARBON DIOXIDE) 28 MMOL/L (24-34); GFR AFRICAN AMERICAN 106 ML/MIN (>=60); GFR NON AFRICAN AMERICAN 91 ML/MIN (>=60); GLUCOSE, SERUM 144 MG/DL (60-99); SODIUM, SERUM 141 MMOL/L (135-148)
[2017-01-16 17:25] LABS: POTASSIUM, SERUM 4.3 MMOL/L (3.5-5.3)
[2017-01-17 04:31] LABS: A/G RATIO 0.6 (0.7-1.9); ALKALINE PHOSPHATASE 57 U/L (45-117); CALCIUM, SERUM 7.6 MG/DL (8.5-10.4); CHLORIDE, SERUM 93 MMOL/L (96-112); CO2 (CARBON DIOXIDE) 27 MMOL/L (24-34); GFR AFRICAN AMERICAN 106 ML/MIN (>=60); GFR NON AFRICAN AMERICAN 91 ML/MIN (>=60); GLOBULIN 3.6 G/DL (2.5-4.1); POTASSIUM, SERUM 3.9 MMOL/L (3.5-5.3); SGOT(AST) 22 U/L (5-40); SGPT(ALT) 42 U/L (5-65); TOTAL BILIRUBIN 0.5 MG/DL (0-1.2); TOTAL PROTEIN 5.7 G/DL (6.0-8.5)
[2017-01-17 04:37] LABS: BUN (BLOOD UREA NITROGEN) 18 MG/DL (6-23); SODIUM, SERUM 132 MMOL/L (135-148)
[2017-01-17 04:38] LABS: ALBUMIN 2.1 G/DL (3.5-5.0)
[2017-01-17 04:39] LABS: GLUCOSE, SERUM 382 MG/DL (60-99)
[2017-01-17 06:10] LABS: BASOPHILS 0.4 %; BASOPHILS ABSOLUTE 0.05 10/3/uL (0.0-0.16); EOSINOPHILS 1.5 %; IMMATURE GRANULOCYTES 2.8 %; IMMATURE GRANULOCYTES ABSOLUTE 0.37 10/3/uL (0.0-0.11); LYMPHOCYTES 13.1 %; LYMPHOCYTES ABSOLUTE 1.74 10/3/uL (0.67-4.30); MEAN CORPUS HGB CONC 33.3 g/dL (32.0-36.0); MEAN CORPUSCULAR HEMOGLOB 31.5 pg (26.0-34.0); MEAN CORPUSCULAR VOLUME 94.4 fL (80-100); MEAN PLATELET VOLUME 9.7 fL (9.2-13.0); MONOCYTES 8.2 %; MONOCYTES ABSOLUTE 1.09 10/3/uL (0.21-1.20); NEUTROPHILS ABSOLUTE 9.86 10/3/uL (2.02-8.40); PLATELET COUNT 320 10/3/uL (150-400); RBC DISTRIBUTION WIDTH 15.2 % (12.0-16.0); WHITE BLOOD CELLS 13.3 10/3/uL (4.5-10.5)
[2017-01-17 06:12] LABS: HEMATOCRIT 30.6 % (40.0-51.0); HEMOGLOBIN 10.2 g/dL (13.6-17.8); MANUAL DIFF NO %; RED CELL COUNT 3.24 10/6/uL (4.7-6.1)
[2017-01-17 06:23] LABS: INTERNATIONAL NORMAL RATI 1.4 UNITS (-); PROTIME (NOT ORD) 16.8 SEC (12.0-14.5)
[2017-01-17 06:24] LABS: BUN (BLOOD UREA NITROGEN) 18 MG/DL (6-23); CALCIUM, SERUM 8.6 MG/DL (8.5-10.4); CHLORIDE, SERUM 101 MMOL/L (96-112); CO2 (CARBON DIOXIDE) 27 MMOL/L (24-34); CREATININE 0.85 MG/DL (0.70-1.30); GFR AFRICAN AMERICAN 108 ML/MIN (>=60); GFR NON AFRICAN AMERICAN 93 ML/MIN (>=60); GLUCOSE, SERUM 130 MG/DL (60-99); PARTIAL THROMBO TIME 93.5 SEC (22.5-37.2); POTASSIUM, SERUM 4.2 MMOL/L (3.5-5.3); SODIUM, SERUM 138 MMOL/L (135-148)
[2017-01-18 03:59] LABS: BASOPHILS 0.3 %; BASOPHILS ABSOLUTE 0.04 10/3/uL (0.0-0.16); EOSINOPHILS 1.5 %; EOSINOPHILS ABSOLUTE 0.19 10/3/uL (0.0-0.53); HEMATOCRIT 29.1 % (40.0-51.0); HEMOGLOBIN 9.5 g/dL (13.6-17.8); IMMATURE GRANULOCYTES 2.6 %; IMMATURE GRANULOCYTES ABSOLUTE 0.33 10/3/uL (0.0-0.11); LYMPHOCYTES 14.5 %; LYMPHOCYTES ABSOLUTE 1.81 10/3/uL (0.67-4.30); MANUAL DIFF NO %; MEAN CORPUS HGB CONC 32.6 g/dL (32.0-36.0); MEAN CORPUSCULAR HEMOGLOB 30.7 pg (26.0-34.0); MEAN CORPUSCULAR VOLUME 94.2 fL (80-100); MEAN PLATELET VOLUME 10.6 fL (9.2-13.0); MONOCYTES 9.1 %; MONOCYTES ABSOLUTE 1.14 10/3/uL (0.21-1.20); NEUTROPHILS ABSOLUTE 8.96 10/3/uL (2.02-8.40); PLATELET COUNT 330 10/3/uL (150-400); RBC DISTRIBUTION WIDTH 15.4 % (12.0-16.0); RED CELL COUNT 3.09 10/6/uL (4.7-6.1); WHITE BLOOD CELLS 12.5 10/3/uL (4.5-10.5)
[2017-01-18 04:04] LABS: INTERNATIONAL NORMAL RATI 1.6 UNITS (-); PROTIME (NOT ORD) 19.2 SEC (12.0-14.5)
[2017-01-18 04:09] LABS: BUN (BLOOD UREA NITROGEN) 17 MG/DL (6-23); CALCIUM, SERUM 8.6 MG/DL (8.5-10.4); CHLORIDE, SERUM 101 MMOL/L (96-112); CO2 (CARBON DIOXIDE) 28 MMOL/L (24-34); CREATININE 0.83 MG/DL (0.70-1.30); GFR AFRICAN AMERICAN 109 ML/MIN (>=60); GFR NON AFRICAN AMERICAN 94 ML/MIN (>=60); GLUCOSE, SERUM 120 MG/DL (60-99); POTASSIUM, SERUM 4.4 MMOL/L (3.5-5.3); SODIUM, SERUM 140 MMOL/L (135-148)
[2017-01-19 03:34] LABS: HEMATOCRIT 30.3 % (40.0-51.0); HEMOGLOBIN 9.8 g/dL (13.6-17.8); MEAN CORPUS HGB CONC 32.3 g/dL (32.0-36.0); MEAN CORPUSCULAR HEMOGLOB 30.8 pg (26.0-34.0); MEAN CORPUSCULAR VOLUME 95.3 fL (80-100); MEAN PLATELET VOLUME 9.9 fL (9.2-13.0); PLATELET COUNT 346 10/3/uL (150-400); RBC DISTRIBUTION WIDTH 15.4 % (12.0-16.0); RED CELL COUNT 3.18 10/6/uL (4.7-6.1); WHITE BLOOD CELLS 12.3 10/3/uL (4.5-10.5)
[2017-01-19 03:35] LABS: MANUAL DIFF YES %
[2017-01-19 03:42] LABS: INTERNATIONAL NORMAL RATI 1.9 UNITS (-); PROTIME (NOT ORD) 21.2 SEC (12.0-14.5)
[2017-01-19 03:47] LABS: BUN (BLOOD UREA NITROGEN) 14 MG/DL (6-23); CALCIUM, SERUM 8.4 MG/DL (8.5-10.4); CHLORIDE, SERUM 103 MMOL/L (96-112); CO2 (CARBON DIOXIDE) 27 MMOL/L (24-34); GFR AFRICAN AMERICAN 106 ML/MIN (>=60); GFR NON AFRICAN AMERICAN 91 ML/MIN (>=60); POTASSIUM, SERUM 4.3 MMOL/L (3.5-5.3); SODIUM, SERUM 140 MMOL/L (135-148)
[2017-01-19 03:50] LABS: GLUCOSE, SERUM 149 MG/DL (60-99)
[2017-01-19 04:02] LABS: BAND NEUTROPHILS 1 %; EOSINOPHILS 3 %; EOSINOPHILS ABSOLUTE (CALC) 0.37 10/3/uL (0.0-0.53); IMMATURE GRANS ABSOLUTE (CALC) 0.12 10/3/uL (0.0-0.11); LYMPHOCYTES 13 %; METAMYELOCYTES 1 %; MONOCYTES 4 %; MONOCYTES ABSOLUTE (CALC) 0.49 10/3/uL (0.21-1.20); NEUTROPHILS ABSOLUTE (CALC) 9.72 10/3/uL (2.02-8.40); PLATELET ESTIMATE ADQ (ADEQUATE); RBC MORPHOLOGY NORM (NORMAL); SEGMENTED NEUTROPHIL (0) 78 %; TOTAL NUCLEATED CELLS 100
[2017-01-20 13:53] LABS: INTERNATIONAL NORMAL RATI 2.1 UNITS (-); PROTIME (NOT ORD) 23.3 SEC (12.0-14.5)
== END 2017-01-20 16:54 | DRG 233 ==
LOC: 6NO 23:59 → CVICU 01-10 11:07 → 5NO 01-12 09:57 → SDC/OF 01-13 11:21 → CVICU 01-13 11:43 → 5NO 01-17 13:34
PROVIDERS: Anesthesiology; Hospitalist; Internal Medicine; Internal Medicine Cardiovascular Disease; Nurse Practitioner Family; Thoracic Surgery (Cardiothoracic Vascular Surgery)
PROC: 4A023N7 Measurement of Cardiac Sampling and Pressure, Left Heart, Percutaneous Approach (ICD-10-PCS; principal; 2017-01-06)
PROC: B2111ZZ Fluoroscopy of Multiple Coronary Arteries using Low Osmolar Contrast (ICD-10-PCS; 2017-01-06)
PROC: B2151ZZ Fluoroscopy of Left Heart using Low Osmolar Contrast (ICD-10-PCS; 2017-01-06)
PROC: 06BP0ZZ Excision of Right Saphenous Vein, Open Approach (ICD-10-PCS; 2017-01-10)
PROC: 5A1221Z Performance of Cardiac Output, Continuous (ICD-10-PCS; 2017-01-10)
PROC: B246ZZ4 Ultrasonography of Right and Left Heart, Transesophageal (ICD-10-PCS; 2017-01-10)
PROC: 021109W Bypass Coronary Artery, Two Arteries from Aorta with Autologous Venous Tissue, Open Approach (ICD-10-PCS; 2017-01-10 10:00)
PROC: 02HV33Z Insertion of Infusion Device into Superior Vena Cava, Percutaneous Approach (ICD-10-PCS; 2017-01-15)
DX: I21.4 Non-ST elevation (NSTEMI) myocardial infarction (principal); J96.21 Acute and chronic respiratory failure with hypoxia; N17.9 Acute kidney failure, unspecified; I69.351 Hemiplegia and hemiparesis following cerebral infarction affecting right dominant side; D62 Acute posthemorrhagic anemia; I31.3 Pericardial effusion (noninflammatory); I73.9 Peripheral vascular disease, unspecified; I25.10 Atherosclerotic heart disease of native coronary artery without angina pectoris; I10 Essential (primary) hypertension; Z79.899 Other long term (current) drug therapy; Z79.82 Long term (current) use of aspirin; Z79.02 Long term (current) use of antithrombotics/antiplatelets; E78.2 Mixed hyperlipidemia
CPT/HCPCS: 36415; 36569; 71010; 71250; 80048; 80053; 80061; 81001; 82330; 82533; 82570; 82803; 82805; 82947; 82962; 83036; 83735; 83880; 84100; 84132; 84145; 84295; 84300; 84443; 84484; 85014; 85018; 85025; 85049; 85347; 85384; 85390; 85576; 85576-59; 85610; 85730; 86850; 86900; 86901; 86920; 87641; 92960; 93005; 93306; 93308; 93312; 93320; 93321; 93325; 93458; 93925; 93970; 94002; 94640; 94660; 94770; 97110-GO; 97110-GP; 97116-GP; 97162-GP; 97166-GO; 97530-GP; 97535-GO; 99152; A9270-GY; C1713; C1751; C1757; C1769; C1894; G0365; G8978-CL-GP; G8979-CJ-GP; J0282; J0690; J1160; J1644; J1940; J2150; J2250; J2370; J2405; J2440; J2550; J2720; J2930; J3010; J3370; J3475; J3480; P9045; P9047; Q9967